=== PATIENT | female | born 1960 | race Caucasian/White ===

== ENCOUNTER 2023-03-11 06:29 | Emergency (ER) | payer BC, SELFPAY ==
--- NOTE | ~2023-03-11 | XR_ITS ---
EXAMINATION: XR CHEST CLINICAL INFORMATION: Fall COMPARISON: None available. TECHNIQUE: Frontal view of the chest was obtained. FINDINGS: No significant abnormality is noted involving the heart, lungs, mediastinum, bony thorax or soft tissues. Degenerative changes are present in the spine with mild scoliosis convex to the right. XR/XR chest 1V IMPRESSION: No acute intrathoracic disease.
[2023-03-11 06:37] VITALS: BP 189/93; PULSE 93; RESP 16; TEMP 36.7; O2SAT 95; BMI 42.4
--- NOTE | 2023-03-11 06:52 | PC.NURSE ---
pt ambulating to radiology with steady gait
--- OUTSIDE RECORDS SUMMARY | 2023-03-11 07:04 | XMS_ITS | Continuity of Care Document ---
Author Name Unknown Organization [facility] ter Address [address] [place] [address]- Care Team Providers Care Lan Engineer Name Role Phone Hood Bhatia MD Primary Care Physician [place] [facility] [place] - 03/29/[address] [address]- [facility] Attending Physician: Hood Bhatia MD Allergies, Adverse Reactions, Alerts Substance Reaction Severity Status NKA Active Immunizations Given and Recorded Vaccine Date Status Refusal Reason influenza virus vaccine, inactivated 12/21/17 Give n influenza virus vaccine, inactivated 12/27/16 Give n influenza virus vaccine, inactivated 12/27/15 Give n influenza virus vaccine, inactivated 11/26/14 Give n tetanus/diphtheria/pertussis, acel(Tdap) 10/01/14 Given Medications cannabidiol See Instructions, tincture and/or cream qd as needed, 0 Refills, Maintenance, 01/25/19 9:56:42 EST Start Date: 01/25/19 Status: Ordered ergocalciferol 61531 iu oral capsule 50,000 International_Units, 1, capsule, By Mouth, Every Wednesday and , # 26 capsule, Refills 0, Tot. Refills 0, Maintenance, 02/03/19 8:55:40 EST, Route to Pharmacy Electronically, [id number], [facility]/pharmacy #[id number], 162.5,... Start Date: 02/03/19 Status: Ordered hydrochlorothiazide-lisinopril 12.5 mg-10 mg oral tablet 1 tablet, By Mouth, Daily, # 90 tablet, 3 Refills, Maintenance, 03/18/18 15:18:39 EST, Tablet, 1 tablet By Mouth Daily Start Date: 03/18/18 Status: Ordered lisinopril 20 mg oral tablet 20 mg, 1, tablet, By Mouth, Daily, # 90 tablet, Refills 0, Tot. Refills 0, Maintenance, 02/03/19 8:56:57 EST, Route to Pharmacy Electronically, [id number], [facility]/pharmacy #[id number], 162.5, cm, 01/31/19 9:49:03 EST, Height Start Date: 02/03/19 Status: Ordered Problem List Condition Effective Dates Status Health Status Inform ant Adult-onset obesity(Confirmed) Active Benign essential hypertension(Confirmed) Active Borderline hyperlipidemia(Confirmed) Active Prediabetes(Confirmed) Active Localized osteoarthritis of left knee(Confirmed) Active Social History Social History Type Response Smoking Status Never smoker; Tobacc o user in household: No entered on: 02/11/15 Sex
--- OUTSIDE RECORDS SUMMARY | 2023-03-11 07:04 | XMS_ITS | Continuity of Care Document ---
Author Name Unknown Organization [facility] ter Address [address] [place] [address]- Care Team Providers Care Rotary Envelope Machine Operator Name Role Phone Sriram VARMA, Hood Chopra Primary Care Physician En[facility] [place] Date(s): 02/02/19 - 02/02/[address] [address] Attending Physician: Luciana Yates MD Allergies, Adverse Reactions, Alerts Substance Reaction [...] 9:56:42 EST Start Date: 01/25/19 Status: Ordered hydrochlorothiazide-lisinopril 12.5 mg-10 mg oral tablet 1 tablet, By Mouth, Daily, # 90 tablet, 3 Refills, Maintenance, 03/18/18 15:18:39 EST, Tablet, 1 tablet By Mouth Daily Start Date: 03/18/18 Status: Ordered Problem List Condition Effective Dates Status Health Status Inform ant Adult-onset obesity(Confirmed) Active Benign essential hypertension(Confirmed) Active Borderline hyperlipidemia(Confirmed) Active Prediabetes(Confirmed) Active Localized osteoarthritis of left knee(Confirmed) Active Social History Social History Type Response Smoking Status Never smoker; Tobacc o user in household: No entered on: 02/11/15 Sex
--- OUTSIDE RECORDS SUMMARY | 2023-03-11 07:04 | XMS_ITS | Continuity of Care Document ---
Author Name Unknown Organization [facility] Address [address] [place] [address]- Care Team Providers Care 1St Pressman Name Role Phone Hood Bhatia MD Primary Care Physician [place] [facility] [place] 12[place] - 04/02/22 [facility] [address] [place] [address]- Attending Physician: Hood Bhatia MD Allergies, Adverse Reactions, Alerts No Known Allergies Immunizations Given and Recorded Vaccine Date Status Refusal Reason SARS-CoV-2 (COVID-19) mRNA-1273 vaccine 06/14/20 R ecorded SARS-CoV-2 (COVID-19) mRNA-1273 vaccine 05/17/20 R ecorded influenza virus vaccine, inactivated 11/20/19 Randy rded influenza virus vaccine, inactivated 11/18/18 Randy rded influenza virus vaccine, inactivated 12/21/17 Give n influenza virus vaccine, inactivated 12/27/16 Give n influenza virus vaccine, inactivated 12/27/15 Give n influenza virus vaccine, inactivated 11/26/14 Give n tetanus/diphtheria/pertussis, acel(Tdap) 10/01/14 Given Medications amLODIPine 2.5 mg oral tablet 2.5 mg, 1, tablet, By Mouth, Daily, # 90 tablet, Refills 4, Tot. Refills 4, Maintenance, 12/30/21 12:01:00 EST, Route to Pharmacy Electronically, [facility]/pharmacy #[id number], Partial fill upon patient requestif the prescription is for a schedule II opioid yahaira... Start Date: 12/30/21 Status: Ordered cholecalciferol 5000 intl units oral tablet, disintegrating 1 tablet = 5,000 International_Units, By Mouth, Daily, # 90 tablet, 3 Refills, Maintenance, 07/10/20 8:47:00 EDT, DIS Tablet, [id number], 162.5, cm, 01/24/20 8:48:00 EST, Height Start Date: 07/10/20 Status: Ordered Problem List Condition Confirmation Course Effective Dates Status Health Status Informant Adult-onset obesity Confirmed Active Benign essential hypertension Confirmed Active Borderline hyperlipidemia Confirmed Active Hyperparathyroidism Confirmed Active Prediabetes Confirmed Active Localized osteoarthritis of left knee Confirmed Active Severe obesity Confirmed Active Social History Social History Type Response Smoking Status Never smoker; Tobacc o user in household: No entered on: 02/11/15 Sex Patient Care team information Care Team Personnel Name: Sriram VARMA, Hood Chopra Position: [facility] Primary Care Physician Member Role: PCP Address: Address: [address] [place] [address]- Care Team Related Persons Name: CANDE HANCOCK Address: home [address] [place] [address]
--- OUTSIDE RECORDS SUMMARY | 2023-03-11 07:04 | XMS_ITS | Continuity of Care Document ---
Author Name Unknown Organization [facility] Address [address] [place] [address]- Care Team Providers Care Home Visitor Name Role Phone Hood Bhatia MD Primary Care Physician [id number] Date(s[facility] 10/07/21 - 10/14/21 [facility] [address] [place], [place] [address] Attending Physician: Not on Staff, Attending MD Referring Physician: Hood Bhatia MD Allergies, Adverse Reactions, [...] n tetanus/diphtheria/pertussis, acel(Tdap) 10/01/14 Given Medications amLODIPine 5 mg oral tablet 5 mg, 1, tablet, By Mouth, Daily, replaces lisinopril, # 30 tablet, Refills 11, Tot. Refills 11, Maintenance, 10/06/21 13:29:00 EDT, Route to Pharmacy Electronically, [facility]/pharmacy #[id number], Partial fillupon patient request if the prescription is for a s... Start Date: 10/06/21 Status: Ordered cholecalciferol 5000 intl units oral tablet, disintegrating 1 tablet = 5,000 International_Units, By Mouth, Daily, # 90 tablet, 3 Refills, Maintenance, 07/10/20 8:47:00 EDT, DIS Tablet, [id number], 162.5, cm, 01/24/20 8:48:00 EST, Height Start Date: 07/10/20 Status: Ordered Problem List Condition Effective Dates Status Health Status Inform ant Adult-onset obesity(Confirmed) Active Benign essential hypertension(Confirmed) Active Borderline hyperlipidemia(Confirmed) Active Hyperparathyroidism(Confirmed) Active Prediabetes(Confirmed) Active Localized osteoarthritis of left knee(Confirmed) Active Severe obesity(Confirmed) Active Social History Social History Type Response Smoking Status Never smoker; Tobacc o user in household: No entered on: 02/11/15 Sex
--- OUTSIDE RECORDS SUMMARY | 2023-03-11 07:04 | XMS_ITS | Continuity of Care Document ---
Author Name Unknown Organization [facility] Address [address] [facility], [address] [place] [address]- Care Team Providers Care Health Physicist Name Role Phone Hood Bhatia MD Primary Care Physician [phone] Encounter 04/05/19 - 04/12/19 [facility] [address], [facility] [address] [place] [address]- [phone] Attending Physician: Luciana Yates MD Admitting Physician: Luciana Yates MD Referring Physician: Luciana Yates MD Allergies, Adverse Reactions, [...] EST Start Date: 01/25/19 Status: Ordered ergocalciferol 14881 iu oral capsule 50,000 International_Units, 1, capsule, By Mouth, Every Wednesday and , # 26 capsule, Refills 0, Tot. Refills 0, Maintenance, 02/03/19 8:55:40 EST, Route to Pharmacy Electronically, [id number], [facility]/pharmacy #[id number], 162.5,... Start Date: 02/03/19 Status: [...] 02/03/19 8:56:57 EST, Route to Pharmacy Electronically, [id number], [facility]/pharmacy #[id number], 162.5, cm, 01/31/19 9:49:03 EST, Height Start Date: 02/03/19 Status: Ordered Problem List Condition Effective Dates Status Health Status Inform ant Adult-onset obesity(Confirmed) Active Benign essential hypertension(Confirmed) Active Borderline hyperlipidemia(Confirmed) Active Prediabetes(Confirmed) Active Localized osteoarthritis of left knee(Confirmed) Active Results Radiology Reports * Exam Date Time Procedure Performing Provider Status 04/05/19 3:37 PM Dexa Bone Density (Axial) Caesar Ross (Verified) Notes: (Dexa Bone Density (Axial)) Reason For Exam: Hyperparathyroidism RESULT: DEXA BONE DENSITY (AXIAL) Bone Density Report Name: HANNAH HANCOCK Age: 59 Sex: Female Ethnicity: White Date of : 1960 Indication: HYPERPARATHYROIDISM. Referring Provider: ESTELITA,LUCIANA A Study: Bone densitometry was performed. Exam Date: April 05, 2019 Accession number: [id number] Bone Density: Region BMD T-score Z-score Classification AP Spine (L1, L2) 1.057 0.7 1.8 Normal Femoral Neck (Right) 0.895 0.4 1.6 Normal Total Hip (Right) 1.107 1.4 2.1 Normal Total Forearm (Left) 0.557 -0.4 0.6 1/3 Forearm (Left) 0.684 -0.2 0.9 Normal UD Forearm (Left) 0.432 -0.2 0.6 World Health Organization criteria for BMD impression classify patients as: Normal (T-score at or above -1.0), Osteopenia (T-score between -1.0 and -2.5), or Osteoporosis (T-score at or below -2.5). 10-year Fracture Risk: FRAX not reported because: All T-scores at or above -1.0 Clinical Information Provided by Patient: Has used the following medications: Vitamin D Patient maximum height was 63.0 Menopause Age: 58 Onset of menses at age 14 Number of children 2 Impression: The patient has normal bone density as determined by WHO criteria. Reported by: Allen Devine M.D. on 04/10/2019 4:26:00 PM. Dictated By: Allen Devine MD Dictated Date/Time: 04/10/19 4:27 pm Reviewed By: Allen Devine MD Signed By: Allen Devine MD Signed Date/Time: 04/10/19 4:27 pm Transcribed By: ELSI Transcribed Date/Time: 04/10/19 4:27 pm Social History Social History Type Response Smoking Status Never smoker; Tobacc o user in household: No entered on: 02/11/15 Sex
--- OUTSIDE RECORDS SUMMARY | 2023-03-11 07:04 | XMS_ITS | Continuity of Care Document ---
Author Name Unknown Organization [facility] Address [address] [facility], [address] [place] [address]- Care Team Providers Care Food Services Manager Name Role Phone Hood Bhatia MD Primary Care Physician Encounter 02/01/19 - 04/01/19 [facility] [address], [facility] [address] [place] [address]- [phone] Attending Physician: Luciana Yates MD Admitting Physician: [...] EST Start Date: 01/25/19 Status: Ordered ergocalciferol 95986 iu oral capsule 50,000 International_Units, 1, capsule, By Mouth, Every Wednesday and , # 26 capsule, Refills 0, Tot. Refills 0, Maintenance, 02/03/19 8:55:40 EST, Route to Pharmacy Electronically, [id number], [facility]/pharmacy #[id number], 162.5,... Start Date: 02/03/19 [...] 02/03/19 8:56:57 EST, Route to Pharmacy Electronically, [id number], [facility]/pharmacy #[id number], 162.5, cm, 01/31/19 9:49:03 [...]
--- OUTSIDE RECORDS SUMMARY | 2023-03-11 07:04 | XMS_ITS | Continuity of Care Document ---
Author Name Unknown Organization [facility] Address [address] [place] [address]- Care Team Providers Care Orthodontist Vice President Name Role Phone Hood Bhatia MD Primary Care Physician [phone] [place] [facility] [place] 09/12/21 - 10/12/21 [facility] [address] [place] [address] Allergies, Adverse Reactions, Alerts No Known Allergies [...] 10/06/21 13:29:00 EDT, Route to Pharmacy Electronically, [facility]/pharmacy #[id number], Partial fillupon patient request if the prescription [...]
--- OUTSIDE RECORDS SUMMARY | 2023-03-11 07:04 | XMS_ITS | Continuity of Care Document ---
Author Name Unknown Organization [facility] Address [address] [place] [address]- Care Team Providers Care Painting Department Supervisor Name Role Phone Hood Bhatia MD Primary Care Physician [phone] Encounter [facility] Date(s): 08/30/20 - 09/29/20 [facility] [address] [place] [address]- Allergies, Adverse Reactions, Alerts Substance Reaction Severity [...] Give n tetanus/diphtheria/pertussis, acel(Tdap) 10/01/14 Given Medications cholecalciferol 5000 intl units oral tablet, disintegrating 1 tablet = 5,000 International_Units, By Mouth, Daily, # 90 tablet, 3 Refills, Maintenance, 07/10/20 8:47:00 EDT, DIS Tablet, [facility]/pharmacy #[id number], 162.5, cm, 01/24/20 8:48:00 EST, Height Start Date: 07/10/20 Status: Ordered lisinopril 20 mg oral tablet 20 mg, 1, tablet, By Mouth, Daily, # 90 tablet, Refills 3, Tot. Refills 3, Maintenance, 07/10/20 8:46:00 EDT, Route to Pharmacy Electronically, [facility]/pharmacy #[id number], 162.5, cm, 01/24/20 8:48:00 EST, Height [...]
--- OUTSIDE RECORDS SUMMARY | 2023-03-11 07:04 | XMS_ITS | Continuity of Care Document ---
Author Name Unknown Organization [facility] Address [address] [place] [address]- Care Team Providers Care Staffing Branch Manager Name Role Phone Hood Bhatia MD Primary Care Physician [place] [facility] [place]07[place] - 11/06/21 [facility] [address] [place] [address]- Allergies, Adverse Reactions, Alerts No Known Allergies [...] 10/06/21 13:29:00 EDT, Route to Pharmacy Electronically, [facility]/pharmacy #[id number], Partial fillupon patient request if the prescription [...] in household: No entered on: 02/11/15 Sex Care Team Personnel Name: Sriram VARMA, Hood Chopra Address: [address] [place] [id number]
--- OUTSIDE RECORDS SUMMARY | 2023-03-11 07:04 | XMS_ITS | Continuity of Care Document ---
Author Name Unknown Organization [facility] Address [address] [place] [address]- Care Team Providers Care Neonatal Social Worker Name Role Phone Hood Bhatia MD Primary Care Physician [place] [facility] [place]s): 07/27/19 - 08/03/19 [facility] [address] [place] [address]- [facility] Attending Physician: Hood Bhatia MD Allergies, Adverse [...] 9:56:42 EST Start Date: 01/25/19 Status: Ordered cholecalciferol 5000 intl units oral tablet, disintegrating 1 tablet = 5,000 International_Units, By Mouth, Daily, # 90 tablet, 3 Refills, Maintenance, 04/25/19 10:56:00 EST, DIS Tablet, [facility]/pharmacy #[id number], 162.5, cm, 04/25/19 10:29:00 EST, Height Start Date: 04/25/19 Status: Ordered lisinopril 20 mg oral tablet 20 mg, 1, tablet, By Mouth, Daily, # 90 tablet, Refills 3, Tot. Refills 3, Maintenance, 04/28/19 9:44:00 EST, Route to Pharmacy Electronically, [facility]/pharmacy #[id number], duplicate rx original sent 04/25/19, 162.5, cm, 04/25/19 10:29:00 EST, Height Start Date: 04/28/19 Status: Ordered Problem List Condition Effective Dates Status Health Status Inform ant Adult-onset obesity(Confirmed) Active Benign essential hypertension(Confirmed) Active Borderline hyperlipidemia(Confirmed) Active Prediabetes(Confirmed) Active Localized osteoarthritis of left knee(Confirmed) Active Vital Signs Most recent to oldest [Reference Range]: 1 Height 162.5 cm (07/27/19 9:59 AM) Social History Social History Type Response Smoking Status Never smoker; Tobacc o user in household: No entered on: 02/11/15 Sex
--- OUTSIDE RECORDS SUMMARY | 2023-03-11 07:04 | XMS_ITS | Continuity of Care Document ---
Author Name Unknown Organization [facility] Address [address] [place] [address]- Care Team Providers Care Photo Print Specialist Name Role Phone Hood Bhatia MD Primary Care Physician Encounter [facility] Date(s): 08/28/20 - 09/27/20 [facility] [address] [place] [address] Attending Physician: AdmNeel omalley Admitting Physician: AdmtrNeel Referring Physician: Admtr, Ar8 Allergies, Adverse Reactions, Alerts Substance Reaction Severity [...] 07/10/20 8:46:00 EDT, Route to Pharmacy Electronically, [facility]/pharmacy #[id number], 162.5, cm, 01/24/20 8:48:00 EST, Height [...]
--- OUTSIDE RECORDS SUMMARY | 2023-03-11 07:04 | XMS_ITS | Continuity of Care Document ---
Author Name Unknown Organization [facility] Address [address] [place] [address]- Care Team Providers Care Blood Bank Laboratory Professional Name Role Phone Hood Bhatia MD Primary Care Physician [place] [facility] [place](s): 09/10/21 - 10/10/21 [facility] [address] [place] [address] Allergies, Adverse Reactions, Alerts No Known Allergies [...] 10/06/21 13:29:00 EDT, Route to Pharmacy Electronically, [facility]/pharmacy #[id number], Partial fillupon patient request if the prescription [...]
--- OUTSIDE RECORDS SUMMARY | 2023-03-11 07:04 | XMS_ITS | Continuity of Care Document ---
Author Name Unknown Organization [facility] Address [address] [place] [address]- Care Team Providers Care Combine Inspector Name Role Phone Hood Bhatia MD Primary Care Physician Encounter [facility] [place] Date(s): 09/16/21 - 10/16/21 [facility] [address] [place] [address]- Allergies, Adverse Reactions, Alerts No Known Allergies [...] 10/06/21 13:29:00 EDT, Route to Pharmacy Electronically, [facility]/pharmacy #[id number], Partial fillupon patient request if the prescription [...] Personnel Name: Sriram VARMA, Hood Chopra Address: [address] [place] [address]
--- OUTSIDE RECORDS SUMMARY | 2023-03-11 07:04 | XMS_ITS | Continuity of Care Document ---
Author Name Unknown Organization [facility] Address [address] [place] [address]- Care Team Providers Care User Support Analyst Name Role Phone Hood Bhatia MD Primary Care Physician Encounter [facility] Date(s): 08/27/20 - 09/03/20 [facility] [address] [place] [address]- Encounter Diagnosis Annual physical exam(Discharge Diagnosis) - 08/27/20 Benign essential hypertension(Discharge Diagnosis) - 08/27/20 Prediabetes(Discharge Diagnosis) - 08/27/20 Hyperparathyroidism(Discharge Diagnosis) - 08/27/20 Attending Physician: Hood Bhatia MD Allergies, Adverse [...] 07/10/20 8:46:00 EDT, Route to Pharmacy Electronically, [facility]/pharmacy #0315, 162.5, cm, 01/24/20 8:48:00 EST, Height Start Date: 07/10/20 Status: Ordered Problem List Condition Effective Dates Status Health Status Inform ant Adult-onset obesity(Confirmed) Active Benign essential hypertension(Confirmed) Active Borderline hyperlipidemia(Confirmed) Active Hyperparathyroidism(Confirmed) Active Prediabetes(Confirmed) Active Localized osteoarthritis of left knee(Confirmed) Active Diagnosis Diagnosis Type Effective Dates Health Status Clinical Service Informant Annual physical exam Discharge Diagnosis 08/27/20 Benign essential hypertension Discharge Diagnosis 08/27/20 Prediabetes Discharge Diagnosis 08/27/20 Hyperparathyroidism Discharge Diagnosis 08/27/20 Vital Signs Most recent to oldest [Reference Range]: 1 Height 160.50 cm (08/27/20 1:07 PM) Weight 100.8 kg (08/27/20 1:07 PM) Oxygen Saturation [94-100 %] 96 % (08/27/20 1:07 PM) Pulse Rate [55-90 bpm] 89 bpm (08/27/20 1:07 PM) Body Mass Index [18.5-24.99] 39.13 *>HHI* (08/27/20 1:07 PM) Blood Pressure [90-138/55-84 mm Hg] 120/ 86mm Hg (08/27/20 1:07 PM) Blood pressure sites Arm, left (08/27/20 1:07 PM) Social History Social History Type Response Smoking Status Never smoker; Tobacc o user in household: No entered on: 02/11/15 Sex
--- OUTSIDE RECORDS SUMMARY | 2023-03-11 07:04 | XMS_ITS | Continuity of Care Document ---
Author Name Unknown Organization [facility] Address [address] [place] [address]- Care Team Providers Care Inserter Operator Name Role Phone Hood Bhatia MD Primary Care Physician En[place] [facility] Date(s): 11/21/21 - 12/21/21 [facility] [address] [place] [address] Allergies, Adverse Reactions, Alerts [...] 10/06/21 13:29:00 EDT, Route to Pharmacy Electronically, [facility]/pharmacy #[id number], Partial fillupon patient request if the prescription [...] on: 02/11/15 Sex Patient Care team information Personnel Name: Hood Bhatia MD Address: Address: [address] [place], [place] [address]
--- OUTSIDE RECORDS SUMMARY | 2023-03-11 07:04 | XMS_ITS | Continuity of Care Document ---
Author Name Unknown Organization [facility] Address [address] [place] [address]- Care Team Providers Care End Frazer Name Role Phone Hood Bhatia MD Primary Care Physician En[place] [facility] [place] Date(s): 05/30/20 - 09/27/20 [facility] [address] [place] [address] Attending Physician: Luciana Yates MD Referring Physician: Hood Bhatia MD Allergies, [...] 07/10/20 8:46:00 EDT, Route to Pharmacy Electronically, [facility]/pharmacy #[id number], 162.5, cm, 01/24/20 8:48:00 EST, Height [...]
--- OUTSIDE RECORDS SUMMARY | 2023-03-11 07:04 | XMS_ITS | Continuity of Care Document ---
Author Name Unknown Organization [facility] Adult Address [address] [place] [address]- Care Team Providers Care Wireless Architect Name Role Phone Hood Bhatia MD Primary Care Physician Encounter [facility] ACCT R [id number] Date(s): 07/27/19 - 08/26/19 [facility] Adult [address] [place] [address]- [facility] Attending Physician: Admtr, Ar8 Admitting Physician: Admtr, Jean8 Referring Physician: Admtr, Ar8 Allergies, Adverse Reactions, [...] Refills, Maintenance, 04/25/19 10:56:00 EST, DIS Tablet, [id number], 162.5, cm, 04/25/19 10:29:00 EST, Height Start Date: 04/25/19 Status: Ordered lisinopril 20 mg oral tablet 20 mg, 1, tablet, By Mouth, Daily, # 90 tablet, Refills 3, Tot. Refills 3, Maintenance, 04/28/19 9:44:00 EST, Route to [facility]ically, [id number], duplicate rx original sent 04/25/19, 162.5, [...]
--- OUTSIDE RECORDS SUMMARY | 2023-03-11 07:04 | XMS_ITS | Continuity of Care Document ---
Author Name Unknown Organization [facility] Address [address] [place] [address]- Care Team Providers Care Manager Disaster Recovery Name Role Phone Hood Bhatia MD Primary Care Physician Encounter [facility] [place] Date(s): 07/15/21 - 08/14/21 [facility] [address] [place] [id number] Allergies, Adverse Reactions, Alerts No Known Allergies [...] Refills, Maintenance, 07/10/20 8:47:00 EDT, DIS Tablet, [facility]/pharmacy #[id number], 162.5, cm, 01/24/20 8:48:00 EST, Height Start Date: 07/10/20 Status: Ordered lisinopril 20 mg oral tablet 20 mg, 1, tablet, By Mouth, Daily, # 90 tablet, Refills 0, Tot. Refills 0, Maintenance, 07/15/21 11:39:00 EDT, Route to Pharmacy Electronically, [facility]/pharmacy #[id number], 160.5, cm, 08/27/20 13:07:00 EDT, Height Start Date: 07/15/21 Status: Ordered Problem List Condition Effective Dates Status Health Status Inform ant Adult-onset obesity(Confirmed) Active Benign essential hypertension(Confirmed) Active Borderline hyperlipidemia(Confirmed) Active Hyperparathyroidism(Confirmed) Active Prediabetes(Confirmed) Active Localized osteoarthritis of left knee(Confirmed) Active Social History Social History Type Response Smoking Status Never smoker; Tobacc o user in household: No entered on: 02/11/15 Sex
--- OUTSIDE RECORDS SUMMARY | 2023-03-11 07:04 | XMS_ITS | Continuity of Care Document ---
Author Name Unknown Organization [facility] Adult Address [address] [place] [address]- Care Team Providers Care Cnc Machine Programmer Name Role Phone Hood Bhatia MD Primary Care Physician [phone] Encounter [facility] [place] Date(s): 10/06/21 - 11/05/21 [facility] Adult [address] [place] [address]- Attending Physician: Admlyssa, Neel Admitting Physician: Admtr, Ar8 Referring Physician: Admtr, Ar8 Allergies, Adverse Reactions, Alerts No Known Allergies [...] to Pharmacy Electronically, [facility]/pharmacy #[id number], Partial fillupon patient request if the prescription [...] on: 02/11/15 Sex Care Team Personnel Name: Hood Bhatia MD Address: [address] [place] [id number]
--- OUTSIDE RECORDS SUMMARY | 2023-03-11 07:04 | XMS_ITS | Continuity of Care Document ---
Author Name Unknown Organization [facility] Adult Address [address] [place] [address]- Care Team Providers Care Automotive Center Manager Name Role Phone Hood Bhatia MD Primary Care Physician Encounter [facility] Date(s): 09/03/20 - 10/03/20 [facility] Adult [address] [place] [address]- Allergies, Adverse Reactions, Alerts Substance Reaction Severity [...] Refills, Maintenance, 07/10/20 8:47:00 EDT, DIS Tablet, [facility]/pharmacy #[id number], 162.5, cm, 01/24/20 8:48:00 EST, Height Start Date: 07/10/20 Status: Ordered lisinopril 20 mg oral tablet 20 mg, 1, tablet, By Mouth, Daily, # 90 tablet, Refills 3, Tot. Refills 3, Maintenance, 07/10/20 8:46:00 EDT, Route to Pharm[facility], [id number], 162.5, cm, 01/24/20 8:48:00 EST, [...]
--- OUTSIDE RECORDS SUMMARY | 2023-03-11 07:04 | XMS_ITS | Continuity of Care Document ---
Author Name Unknown Organization [facility] Address [address] [place] [address]- Care Team Providers Care Tankroom Worker Name Role Phone Hood Bhatia MD Primary Care Physician En[place] [facility] [place] [id number] Date(s): 10/07/21 - 11/06/21 [facility] [address] [place], [place] [address] Attending Physician: Admlyssa, Neel Admitting Physician: Admtr, [...] Route to Pharmacy Electronically, [facility]/pharmacy #[id number], Partial fillupon patient request if the prescription [...] Team Personnel Name: Hood Bhatia MD Address: [address] [place] [id number]
--- OUTSIDE RECORDS SUMMARY | 2023-03-11 07:04 | XMS_ITS | Continuity of Care Document ---
Author Name Unknown Organization [facility] Address [address] [place] [address]- Care Team Providers Care Die Repair Name Role Phone Hood Bhatia MD Primary Care Physician En[place] [facility] Date(s): 08/28/20 - 09/27/20 [facility] [address] [place] [id number] Allergies, Adverse Reactions, Alerts Substance Reaction Severity [...] Refills, Maintenance, 07/10/20 8:47:00 EDT, DIS Tablet, [facility]/pharmacy #[id number], 162.5, cm, 01/24/20 8:48:00 EST, [...]
--- OUTSIDE RECORDS SUMMARY | 2023-03-11 07:04 | XMS_ITS | Continuity of Care Document ---
Author Name Unknown Organization [facility] Address [address] [place] [address]- Care Team Providers Care Screening Unit Registered Nurse Name Role Phone Hood Bhatia MD Primary Care Physician Encounter 08/27/21 - 09/03/21 [facility] [address], [facility] [address] [place], [place] [address] Attending Physician: Luciana Yates MD Admitting Physician: Luciana Yates MD Referring Physician: Luciana Yates MD Allergies, Adverse Reactions, Alerts No Known [...] 07/15/21 11:39:00 EDT, Route to Pharmacy Electronically, [facility]/pharmacy #[id number], 160.5, cm, 08/27/20 13:07:00 EDT, Height Start Date: 07/15/21 Status: Ordered Problem List Condition Effective Dates Status Health Status Inform ant Adult-onset obesity(Confirmed) Active Benign essential hypertension(Confirmed) Active Borderline hyperlipidemia(Confirmed) Active Hyperparathyroidism(Confirmed) Active Prediabetes(Confirmed) Active Localized osteoarthritis of left knee(Confirmed) Active Results Radiology Reports * Exam Date Time Procedure Performing Provider Status 08/27/21 3:44 PM Dexa Bone Density (Axial) Kadie Martins; Nya (Verified) Notes: (Dexa Bone Density (Axial)) Reason For Exam: Osteoporosis RESULT: DEXA BONE DENSITY (AXIAL) Bone Density Report Name: HANNAH HANCOCK Age: 61 Sex: Female Ethnicity: White Date of : 1960 Indication: HYPERPARATHYROIDISM. Referring Provider: LUCIANA YATES MD Study: Bone densitometry was performed. Exam Date: August 27, 2021 Accession number: [id number] Bone Density: Region BMD T-score Z-score Classification AP Spine (L1, L2) 1.088 1.0 2.3 Normal Femoral Neck (Right) 0.940 0.8 2.1 Normal Total Hip (Right) 1.063 1.0 1.9 Normal Total Forearm (Left) 0.542 -0.7 0.5 1/3 Forearm (Left) 0.660 -0.6 0.7 Normal UD Forearm (Left) 0.419 -0.4 0.5 World Health Organization criteria for BMD impression classify patients as: Normal (T-score at or above -1.0), Osteopenia (T-score between -1.0 and -2.5), or Osteoporosis (T-score at or below -2.5). 10-year Fracture Risk: FRAX not reported because: All T-scores at or above -1.0 Previous Exams: Region Exam Age BMD T-score BMD Change BMD Change Date g/cm2 vs Baseline vs Previous AP Spine(L1, L2) 08/27/2021 61 1.088 1.0 3.0%* 3.0%* 04/05/2019 59 1.057 0.7 Total Hip(Right) 08/27/2021 61 1.063 1.0 -4.0%* -4.0%* 04/05/2019 59 1.107 1.4 Femoral Neck(Right) 08/27/2021 61 0.940 0.8 5.0%* 5.0%* 04/05/2019 59 0.895 0.4 1/3 Forearm(Left) 08/27/2021 61 0.660 -0.6 -3.4% -3.4% 04/05/2019 59 0.684 -0.2 *Denotes significance at 95% confidence level, LSC for AP Spine = 0.022 g/cm2, LSC for Total Hip = 0.027 g/cm2, LSC for 1/3 Forearm = 0.023 g/cm2 Clinical Information Provided by Patient: Has used the following medications: Vitamin D Patient maximum height was 63.0 Menopause Age: 60 Onset of menses at age 14 Number of children 2 Impression: The patient has normal bone density as determined by WHO criteria. Reported by: Allen Devine M.D. on 09/02/2021 4:38:00 PM. Dictated By: Allen Devine MD Dictated Date/Time: 09/02/21 4:39 pm Reviewed By: Allen Devine MD Signed By: Allen Devine MD Signed Date/Time: 09/02/21 4:39 pm Transcribed By: ELSI Transcribed Date/Time: 09/02/21 4:39 pm Social History Social History Type Response Smoking Status Never smoker; Tobacc o user in household: No entered on: 02/11/15 Sex
--- OUTSIDE RECORDS SUMMARY | 2023-03-11 07:04 | XMS_ITS | Continuity of Care Document ---
Author Name Unknown Organization [facility] Address [address] [place] [address]- Care Team Providers Care Calenderer Name Role Phone Hood Bhatia MD Primary Care Physician [phone] [place] [facility] [place](s): 10/01/21 - 10/31/21 [facility] [address] [place] [id number] Attending Physician: AdmNeel omalley Admitting Physician: Admtr, Ar8 Referring Physician: Admtr, [...] 10/06/21 13:29:00 EDT, Route to Pharmacy Electronically, [facility]/pharmacy #[id number], Partial fillupon patient request if the prescription [...] Team Personnel Name: Hood Bhatia MD Address: [address] [place] [id number]
--- OUTSIDE RECORDS SUMMARY | 2023-03-11 07:04 | XMS_ITS | Continuity of Care Document ---
Author Name Unknown Organization [facility] Address [address] [place] [address]- Care Team Providers Care Hand Shaper Name Role Phone Hood Bhatia MD Primary Care Physician [phone] Encounter [facility] [place] Date(s): 09/16/21 - 10/16/21 [facility] [address] [place] [id number] Attending Physician: AdmNeel omalley Admitting Physician: [...] 10/06/21 13:29:00 EDT, Route to Pharmacy Electronically, [facility]/pharmacy #[id number], Partial fillupon patient request if the prescription [...] Team Personnel Name: Hood Bhatia MD Address: [address] [place] [id number]
--- OUTSIDE RECORDS SUMMARY | 2023-03-11 07:04 | XMS_ITS | Continuity of Care Document ---
Author Name Unknown Organization [facility] Adult Address [address] [place] [address]- Care Team Providers Care Health Sanitarian Name Role Phone Hood Bhatia MD Primary Care Physician [place] [facility] [place] 01/25/19 - 02/01/19 [facility] Adult [address] [place] [address]- [facility] Attending Physician: Hood Bhatia MD Allergies, Adverse [...] Most recent to oldest [Reference Range]: 1 2 Height 162.5 cm (01/25/19 9:50 AM) 162.5 cm (01/25/19 9:41 AM) Weight 103.9 kg (01/25/19 9:41 AM) Oxygen Saturation [94-100 %] 98 % (01/25/19 9:41 AM) Pulse Rate [55-90 bpm] 91 bpm *H* (01/25/19 9:41 AM) Body Mass Index [18.5-24.99] 39.35 *>HHI* (01/25/19 9:41 AM) Blood Pressure [90-138/55-84 mm Hg] 138/ 78mm Hg (01/25/19 9:50 AM) 140/88mm Hg *H* (01/25/19 9:41 AM) Mode of Delivery (Oxygen) Room air (01/25/19 9:41 AM) Blood pressure sites Arm, left (01/25/19 9:50 AM) Arm, left (01/25/19 9:41 AM) Social History Social History Type Response Smoking Status Never smoker; Tobacc o user in household: No entered on: 02/11/15 Sex
--- OUTSIDE RECORDS SUMMARY | 2023-03-11 07:04 | XMS_ITS | Continuity of Care Document ---
Author Name Unknown Organization [facility] Address [address] [place] [address]- Care Team Providers Care Eligibility Examiner Name Role Phone Hood Bhatia MD Primary Care Physician [phone] Encounter [facility] [place] Date(s): 08/08/21 - 09/07/21 [facility] [address] [place] [id number] Allergies, Adverse Reactions, Alerts No Known [...] Refills, Maintenance, 07/10/20 8:47:00 EDT, DIS Tablet, [facility]/pharmacy #[id number], 162.5, cm, 01/24/20 8:48:00 EST, Height Start Date: 07/10/20 Status: Ordered lisinopril 20 mg oral tablet 20 mg, 1, tablet, By Mouth, Daily, # 90 tablet, Refills 0, Tot. Refills 0, Maintenance, 07/15/21 11:39:00 EDT, [facility], [id number], 160.5, cm, 08/27/20 13:07:00 EDT, Height [...]
--- OUTSIDE RECORDS SUMMARY | 2023-03-11 07:05 | XMS_ITS | Continuity of Care Document ---
Author Name Unknown Organization [facility] Adult Address Unknown Care Team Providers Care Marble Cutter Name Role Phone Hood Bhatia MD Primary Care Physician [phone] [id number] Date[facility] 06/04[facility]21 - 10/02/21 [facility] Attending Physician: Hood Bhatia MD Allergies, Adverse [...] Refills, Maintenance, 07/10/20 8:47:00 EDT, DIS Tablet, [facility]/pharmacy #[id number], 162.5, cm, 01/24/20 8:48:00 EST, Height Start Date: 07/10/20 Status: Ordered lisinopril 20 mg oral tablet 20 mg, 1, tablet, By Mouth, Daily, # 90 tablet, Refills 0, Tot. Refills 0, Maintenance, 07/15/21 11:39:00 EDT, Route to Pharmacy Electronically, [facility]/pharmacy #[id number], 160.5, cm, 08/27/20 13:07:00 EDT, [...]
--- OUTSIDE RECORDS SUMMARY | 2023-03-11 07:05 | XMS_ITS | Continuity of Care Document ---
Author Name Unknown Organization [facility] Address [address] [place] [address]- Care Team Providers Care Pan Tank Worker Name Role Phone Hood Bhatia MD Primary Care Physician [phone] Encounter [facility] [place] Date(s): 09/08/21 - 10/08/21 [facility] [address] [place] [id number] Allergies, Adverse Reactions, Alerts No Known Allergies [...] 10/06/21 13:29:00 EDT, Route to Pharmacy Electronically, [facility]/pharmacy #[id number], Partial fillupon patient request if the prescription [...]
--- OUTSIDE RECORDS SUMMARY | 2023-03-11 07:05 | XMS_ITS | Continuity of Care Document ---
Author Name Unknown Organization [facility] Adult Address [address] [place] [address]- Care Team Providers Care Transport Corps Officer Name Role Phone Hood Bhatia MD Primary Care Physician Encounter [facility] Date(s): 12/30/21 - 01/29/22 [facility] [address] [place] [address]- Allergies, Adverse Reactions, Alerts No Known Allergies [...] 12/30/21 12:01:00 EST, Route to Pharmacy Electronically, [facility]/pharmacy #[id number], Partial fill upon patient requestif the prescription [...] Care team information Care Team Personnel Name: Hood Bhatia MD Position: [facility] Primary Care Physician Member Role: PCP Address: Address: [address] [place] [address]- Care Team Related Persons Name: CANDE HANCOCK Address: home [address] [place] [address]
--- OUTSIDE RECORDS SUMMARY | 2023-03-11 07:05 | XMS_ITS | Continuity of Care Document ---
Author Name Unknown Organization [facility] Adult Address [address] [place] [address]- Care Team Providers Care Side Framer Name Role Phone Hood Bhatia MD Primary Care Physician [place] [facility] [place](s): 03/03/22 - 04/02/22 [facility] [address] [place] [address]- Attending Physician: Admlyssa, Neel Admitting Physician: Admtr, [...] 12/30/21 12:01:00 EST, Route to Pharmacy Electronically, [facility]/pharmacy #[id number], Partial fill upon patient requestif the prescription [...] Care team information Care Team Personnel Name: Hodo Bhatia MD Position: S Primary Care Physician Member Role: PCP Address: Address: [address] [place] [address]- Care Team Related Persons Name: CANDE HANCOCK Address: home [address] [place] [address]
--- OUTSIDE RECORDS SUMMARY | 2023-03-11 07:05 | XMS_ITS | Continuity of Care Document ---
Author Name Unknown Organization [facility] Adult Address [address] [place] [address]- Care Team Providers Care Solid Plasterer Name Role Phone Hood Bhatia MD Primary [facility] Physician [id number] Date[facility] 01/24/20 - 02/23/20 [facility] [address] [place] [address]- Attending Physician: AdmNeel omalley Admitting Physician: AdmtrNeel [...] Refills, Maintenance, 04/25/19 10:56:00 EST, DIS Tablet, [facility]/pharmacy #[id number], 162.5, cm, 04/25/19 10:29:00 EST, Height Start Date: 04/25/19 Status: Ordered lisinopril 20 mg oral tablet 20 mg, 1, tablet, By Mouth, Daily, # 90 tablet, Refills 3, Tot. Refills 3, Maintenance, 04/28/19 9:44:00 EST, Route to Pharmacy Electronically, [facility]/pharmacy #[id number], duplicate rx original sent 04/25/19, 162.5, [...]
--- OUTSIDE RECORDS SUMMARY | 2023-03-11 07:05 | XMS_ITS | Continuity of Care Document ---
Author Name Unknown Organization [facility] Address [address] [place] [address]- Care Team Providers Care Outside Physical Damage Appraiser Name Role Phone Hood Bhatia MD Primary Care Physician [place] [facility] [place] 04/25/19 - 05/05/19 [facility] [address] [place] [address]- [facility] Attending Physician: Admtr, Ar8 Admitting Physician: Admtr, Ar8 Referring Physician: Admtr, [...]
--- OUTSIDE RECORDS SUMMARY | 2023-03-11 07:05 | XMS_ITS | Continuity of Care Document ---
Author Name Unknown Organization [facility] Address [address] [place] [address]- Care Team Providers Care Truck Caterer Name Role Phone Hood Bhatia MD Primary Care Physician En[place] [facility] [place] Date(s): 09/10/21 - 10/10/21 [facility] [address] [place] [id number] Allergies, Adverse Reactions, Alerts No [...] EDT, Route to Pharmacy Electronically, [facility]/pharmacy #[id number], Partial fillupon patient request if the prescription [...]
--- OUTSIDE RECORDS SUMMARY | 2023-03-11 07:05 | XMS_ITS | Continuity of Care Document ---
Author Name Unknown Organization [facility] Adult Address [address] [place] [address]- Care Team Providers Care Shop Firer/Fireman Name Role Phone Hood Bhatia MD Primary Care Physician [place] [facility] [place] Date(s): 07/18/22 - 08/17/22 [facility] [address] [place] [address]- Allergies, Adverse Reactions, Alerts No Known Allergies Immunizations Given and Recorded Vaccine Date Status Refusal Reason influenza virus vaccine, inactivated 11/24/21 Randy rded influenza virus vaccine, inactivated 12/10/20 Randy rded influenza virus vaccine, inactivated 11/20/19 Randy rded influenza virus vaccine, inactivated 11/18/18 Randy rded influenza virus vaccine, inactivated 12/21/17 Give n influenza virus vaccine, inactivated 12/27/16 Give n influenza virus vaccine, inactivated 12/27/15 Give n influenza virus vaccine, inactivated 11/26/14 Give n [id number] bivalent booster vax 11/24/21 Recorded zoster vaccine, inactivated 07/15/21 Recorded zoster vaccine, inactivated 04/04/21 Recorded SARS-CoV-2 (COVID-19) mRNA-1273 vaccine 01/27/21 R ecorded SARS-CoV-2 (COVID-19) mRNA-1273 vaccine 06/14/20 R ecorded SARS-CoV-2 (COVID-19) mRNA-1273 vaccine 05/17/20 R ecorded tetanus/diphtheria/pertussis, acel(Tdap) 10/01/14 Given Medications amLODIPine 2.5 mg oral tablet 2.5 mg, 1, tablet, By Mouth, Daily, # 90 tablet, Refills 4, Tot. Refills 4, Maintenance, 12/30/21 12:01:00 EST, Route to Pharmacy Electronically, [facility]/pharmacy #[id number], Partial fill upon patient requestif the prescription is for a schedule II opioid yahaira... Start Date: 12/30/21 Status: Ordered cholecalciferol 5000 intl units oral tablet, disintegrating 1 tablet = 5,000 International_Units, By Mouth, Daily, # 90 tablet, 3 Refills, Maintenance, 07/10/20 8:47:00 EDT, DIS Tablet, [facility]/pharmacy #[id number], 162.5, cm, 01/24/20 8:48:00 EST, Height Start Date: 07/10/20 Status: Ordered terbinafine 250 mg oral tablet 1 tablet = 250 mg, By Mouth, Daily, for 84 days, # 84 tablet, 0 Refills, Acute 10/09/22 14:41:00 EDT, 07/17/22 14:41:00 EDT, [facility]/pharmacy #[id number], Partial fill upon patient request if the prescription is for a schedule II opioid drug., 160.5, cm, ... Start Date: 07/17/22 Stop Date: 10/09/22 Status: Ordered Vitamin D3 1000 intl units oral tablet 1 tablet = 25 mcg, By Mouth, Daily, 0 Refills, Maintenance, 07/17/22 13:59:00 EDT, Partial fill upon patient request if the prescription is for a schedule II opioid drug. Start Date: 07/17/22 Status: Ordered Problem List Condition Confirmation Course [...] Team Personnel Name: Hood Bhatia MD Position: S Physician - Primary Care Member Role: PCP Address: Address: [address] [place] [address]- Care Team Related Persons Name: CANDE HANCOCK Address: home [address] [place] [id number]
--- OUTSIDE RECORDS SUMMARY | 2023-03-11 07:05 | XMS_ITS | Continuity of Care Document ---
Author Name Unknown Organization [facility] Adult Address [address] [place] [address]- Care Team Providers Care Freight Caller Name Role Phone Hood Bhatia MD Primary Care Physician [place] [facility] 09/17/21 - 10/17/21 [facility] [address] [place] [address]- Allergies, Adverse Reactions, Alerts No Known Allergies [...] to Pharmacy Electronically, [facility]/pharmacy #[id number], Partial fillupon patient request if the prescription [...] Personnel Name: Sriram VARMA, Hood Chopra Address: [address] [place] [id number]
--- OUTSIDE RECORDS SUMMARY | 2023-03-11 07:05 | XMS_ITS | Continuity of Care Document ---
Author Name Unknown Organization [facility] ter Address [address] [place] [id number]- Care Team Providers Care Yarn Spooler Name Role Phone Sriram VARMA, Hood Chopra Primary Care Physician Encounter [facility] [place] Date(s): 03/29/19 - 03/29/[address] [address]- [facility] Attending Physician: Luciana Yates MD Allergies, Adverse [...] EST Start Date: 01/25/19 Status: Ordered ergocalciferol 56114 iu oral capsule 50,000 International_Units, 1, capsule, By Mouth, Every Wednesday and , # 26 capsule, Refills 0, Tot. Refills 0, Maintenance, 02/03/19 8:55:40 EST, Route to Pharmacy Electronically, [id number], [facility]/pharmacy #[id number], 162.5,... Start Date: 02/03/19 Status: Ordered [...] 02/03/19 8:56:57 EST, Route to Pharmacy Electronically, [id number], [facility]/pharmacy #[id number], 162.5, cm, 01/31/19 9:49:03 EST, Height [...]
--- OUTSIDE RECORDS SUMMARY | 2023-03-11 07:05 | XMS_ITS | Continuity of Care Document ---
Author Name Unknown Organization [facility] Address [address] [place] [address]- Care Team Providers Care Proofer Black And White Name Role Phone Hood Bhatia MD Primary Care Physician [phone] Encounter [facility] Date(s): 07/24/22 - 08/23/22 [facility] [address] [place] [address]- Allergies, Adverse Reactions, Alerts No Known Allergies [...] influenza virus vaccine, inactivated 11/26/14 Give n [id number] bivalent booster vax 11/24/21 Recorded zoster vaccine, [...] 12/30/21 12:01:00 EST, Route to Pharmacy Electronically, [facility]/pharmacy #[id number], Partial fill upon patient requestif the prescription is for a schedule II opioid yahaira... Start Date: 12/30/21 Status: Ordered cholecalciferol 5000 intl units oral tablet, disintegrating 1 tablet = 5,000 International_Units, By Mouth, Daily, # 90 tablet, 3 Refills, Maintenance, 07/10/20 8:47:00 EDT, DIS Tablet, [facility]/pharmacy #[id number], 162.5, cm, 01/24/20 8:48:00 EST, Height Start Date: 07/10/20 Status: Ordered terbinafine 250 mg oral tablet 1 tablet = 250 mg, By Mouth, Daily, for 84 days, # 84 tablet, 0 Refills, Acute 10/09/22 14:41:00 EDT, 07/17/22 14:41:00 EDT, [facility]/pharmacy #[id number], Partial fill upon patient request if [...] Care Member Role: PCP Address: Address: [address] [place] [address]- Care Team Related Persons Name: CANDE HANCOCK Address: home [address] [place] [id number]
[2023-03-11] MEDS: Lidocaine 4 % Patch ADH..PATCH 1 PATCH TRANSDERMA (07:28)
--- NOTE | 2023-03-11 07:28 | ED.FALL ---
HPI - Fall General Chief Complaint: Fall Stated Complaint: Fall Time Seen by Provider: 03/11/23 07:04 Source: patient Mode of arrival: ambulatory Limitations: no limitations History of Present Illness HPI Narrative: 63 yo female with PMH of HTN here with c/o falling down her porch steps about 4 to 5 steps after slipping landing on buttocks and hitting L posterior ribs. No headstrike or LOC. No thinners. No other injuries isolated to L ribs. She was able to get up on her own. MD complaint: fall Onset (ago): hour(s) (2) Fall from: down stairs (#) (4) Fall witnessed: no Place fall occurred: home Loss of consciousness: none Prolonged down time: no Symptoms prior to fall: none Context: tripped/slipped Location of injury: chest (posterior L ribs) Severity: moderate Quality: aching Associated symptoms (after fall): denies Related Data Previous Rx's Medication Instructions Recorded cyclobenzaprine 10 mg tablet 10 mg PO TID PRN muscle spasm #20 03/11/23 tabs lidocaine 5 % topical patch 1 patch topical DAILY #30 ea 03/11/23 Allergies Allergy/AdvReac Type Severity Reaction Status Date / Time No Known Allergies Allergy Verified 03/11/23 06:36 Review of Systems Review of Systems: Constitutional : No Weight loss, No Fever, No Chills Cardiovascular : pos rib Pain, noSOB, no Dyspnea on Exertion, No Orthopnea, No Edema, No Palpitations Respiratory : No Cough, No Sputum Gastrointestinal : no Nausea, No Vomiting, No Diarrhea, No abdominal Pain, No Hematochezia, No Melena Genitourinary : No Dysuria, No Urinary Frequency Musculoskeletal : No joint pain, No Myalgias, No Joint Swelling Skin : No Skin Lesions, No rash Neuro : No Weakness, No Numbness, No Dizziness, No Headache Psych : No Anxiety/Panic, No Depression All other systems reviewed and are negative PMFSH Past Medical History Source: old records reviewed Onset Date is defined in the Problem List Problems that require an onset date and time if occurred within 24 hrs of arrival to the ED Aortic Dissection and Rupture; Neurologic impairment; Cardiopulmonary Arrest; Endotracheal Intubation; Insertion or Replacement of Mechanical Circulatory Assist Device Medical History HTN (hypertension) Social History Social History (Updated 03/11/23 @ 08:03 by Kelly Tadeo DO) Patient Tobacco Use Status: Never used Tobacco Advance Directives: No Physical Exam Vital Signs: Vital Signs: Last Vital Signs Temp 98.0 F 03/11/23 06:37 Pulse 93 03/11/23 06:37 Resp 16 03/11/23 06:37 BP 189/93 H 03/11/23 06:37 Pulse Ox 95 03/11/23 06:37 O2 Del Method Room Air 03/11/23 06:37 BMI result Body Mass Index 42.4 Appearance: Alert. Oriented X3. No acute distress. Eyes: Pupils equal, round and reactive to light. ENT: Pharynx normal. Atraumatic Neck: Normal inspection. Neck supple. CVS: Normal heart rate and rhythm. Pulses normal. Back: posterior L ribs contusion noted crepitus Respiratory: No respiratory distress. Breath sounds normal. Abdomen: Soft and nontender. Skin: Skin warm and dry. Normal skin color. Normal skin turgor. Extremities: No lower extremity edema. No calf ttp Neuro: Oriented X 3. No motor deficit. No sensory deficit. Medications Administered Discontinued Medications Generic Name Dose Route Start Last Admin Trade Name Freq PRN Reason Stop Dose Admin Acetaminophen 975 mg 03/11/23 07:17 03/11/23 07:29 Acetaminophen 325 Mg Tablet PO 03/11/23 07:18 975 mg ONCE ONE Administration Lidocaine 1 patch 03/11/23 07:17 03/11/23 07:28 Lidocaine 4 % Patch Adh..Patch TRANSDERMA 03/11/23 07:18 1 patch ONCE ONE Administration Protocol Medical Decision Making Medical Decision Making MDM Narrative: 63yo female with HTN not on thinners isolated rib trauma after fall no crepitus felt no head or neck injury no abdominal injury at this time will obtain films of ribs - pain control Differential Diagnosis Differential Diagnoses: The differential diagnosis associated with the presentation includes contusion, MSK pain, rib fracture Admission/Observation Consideration of admission/observation: Escalation of care including admission/observation considered stable VS pain controlled can be managed as outpatient Independent Interpretation I performed an independent interpretation of an: Plain X-Ray Radiology Impression Discussion of test interpretation with radiology: I have reviewed the radiologist's reading. Tests considered The following testing was considered but not selected: offered CT scan but she declined - hard to see xrays given body habitus Prescription Management I considered prescription management with: Other Discharge Plan Discharge Clinical Impression: Contusion of rib on left side Qualifiers: Encounter type: initial encounter Qualified Code(s): S20.212A - Contusion of left front wall of thorax, initial encounter Patient Disposition: Home, Self-Care Instructions: Rib Contusion (ED) Additional Instructions: return for worsening pain, productive cough, fevers, difficulty breathing or any other concerns. no lifting more than 10lbs for 2 weeks. incentive spirometer 10 breaths while awake every 2 hours. Prescriptions: New cyclobenzaprine 10 mg tablet 10 mg PO TID PRN (Reason: muscle spasm) Qty: 20 0RF lidocaine 5 % adhesive patch,medicated 1 patch topical DAILY Qty: 30 0RF Rx Instructions: leave on most painful area for up to 12 hrs Stand Alone Forms: Work/School Release Interventions: ED Discharge Assessment Last Done: 03/11/23 08:25 Discharge Date/Time: 03/11/23 08:25
[2023-03-11] MEDS: Acetaminophen 325 MG TABLET 975 MG PO (07:29)
--- NOTE | 2023-03-11 07:29 | PC.NURSE ---
patient a&ox3, c/o left back pain 3-06/01, pt medicated per order, awaiting radiology results, call gama within reach, will continue to monitor
--- NOTE | 2023-03-11 08:24 | PC.NURSE ---
patient a&ox3, pt pain decreased to 2/10 with lido patch application, pt speaking in full sentences, ambulating with a steady gait, pt teaching of incentive spirometer completed and pt to discharge home.
== END 2023-03-11 08:25 | disposition home or self-care (01) ==
PROVIDERS: Emergency Provider Emergency Medicine; PCP Internal Medicine
DX: S20.212A Contusion of left front wall of thorax, initial encounter (principal); R07.81 Pleurodynia; W10.9XXA Fall (on) (from) unspecified stairs and steps, initial encounter; Y93.9 Activity, unspecified; Y92.9 Unspecified place or not applicable; Y99.8 Other external cause status
CPT/HCPCS: 71045; 99283